=== PATIENT | female | born 1995 | race African-American/Black ===

== ENCOUNTER 2022-08-23 07:48 | Inpatient (IN) | payer OTHER ==
[2022-08-23] MEDS ORDERED: CITRIC ACID/SODIUM CITRATE 30 ML UNIT-DOSE CUP PO ONE (09:05)
[2022-08-23] MEDS ORDERED: ELECTROLYTE-148 SOLN 500 ML IV ONE (09:05)
[2022-08-23] MEDS ORDERED: ceFAZolin SODIUM 1 GM VIAL ONE (09:07)
[2022-08-23] MEDS ORDERED: ELECTROLYTE-148 SOLN 1,000 ML IV SCH (09:45)
[2022-08-23] MEDS ORDERED: CEFAZOLIN 3 GM in DEXTROSE 5%-WATER 100 ML IVPB ONE (09:45)
[2022-08-23 10:00] VITALS: BMI 35.3
[2022-08-23 10:09] LABS: BASO % 0.4 % (0-2.0); EOS % 0.7 % (0-4.5); HEMATOCRIT 33.9 % (32.4-45.2); HEMOGLOBIN 10.6 GM/dL (10.7-15.3); LYMPH % 8.9 % (8-40); MCH 26.9 pg (25.7-33.7); MCHC 31.4 g/dl (32.0-36.0); MEAN CELL VOLUME 85.7 fl (80-96); MEAN PLT VOLUME 9.4 fl (7.5-11.1); MONO % 5.7 % (3.8-10.2); NEUT % 84.3 % (42.8-82.8); PLATELET COUNT 274 10^3/uL (134-434); RBC 3.95 M/mm3 (3.60-5.2); RDW 14.7 % (11.6-15.6); WHITE BLOOD COUNT 17.6 K/mm3 (4.0-10.0)
[2022-08-23 10:17] LABS: INR 0.97 (0.83-1.09); PROTHROMBIN TIME (PATIENT) 11.2 SEC (9.7-13.0)
[2022-08-23] MEDS ORDERED: AZITHROMYCIN IVPB 500 MG/250 ML BAG IVPB ONE (10:17)
[2022-08-23 10:19] LABS: ACTIVATED PTT 27.2 SECONDS (25.2-36.5)
[2022-08-23 10:42] LABS: POC NITRAZINE NEG
[2022-08-23 11:09] LABS: POTASSIUM 4.2 mmol/L (3.5-5.1)
[2022-08-23 11:12] LABS: BLOOD UREA NITROGEN 8.1 mg/dL (7-18); CALCIUM 9.4 mg/dL (8.5-10.1)
[2022-08-23 11:14] LABS: CREATININE 1.1 mg/dL (0.55-1.3)
[2022-08-23] MEDS ORDERED: SENNOSIDES/DOCUSATE COMBO (SENNA PLUS) TABLET (UD) PO PRN (12:08)
[2022-08-23] MEDS ORDERED: ONDANSETRON 4 MG/2 ML VIAL IVPB PRN (12:08)
[2022-08-23] MEDS ORDERED: oxyCODONE HCL 5 MG TABLET PO PRN (12:08)
[2022-08-23] MEDS ORDERED: OXYTOCIN 20 UNITS in 0.9% NS 20 UNIT/1,000 ML INFUS.BAG IV SCH (12:15)
[2022-08-23 12:29] LABS: CORD BASE EXCESS -5.8 mmol/L (0-2); CORD HCO3 22.4 mmHg (20-29); CORD PCO2 54.7 mmHg (30-78); CORD pH 7.231 (7.14-7.44)
[2022-08-23 12:33] LABS: CORD BASE EXCESS -7.3 mmol/L (0-2); CORD HCO3 23.1 mmHg (20-29); CORD PCO2 68.4 mmHg (30-78); CORD pH 7.146 (7.14-7.44)
[2022-08-23] MEDS ORDERED: OXYTOCIN 20 UNITS in 0.9% NS 20 UNIT/1,000 ML INFUS.BAG IV ONE (13:44)
[2022-08-23] MEDS: ACETAMINOPHEN 1000 MG/100 ML BAG IVPB SCH ×2 (15:21→21:30)
[2022-08-23] MEDS: IBUPROFEN 800 MG/8 ML IJ IVPB SCH (20:09)
[2022-08-23] MEDS: SIMETHICONE 80 MG TAB.CHEW (FP) PO PRN (20:12)
[2022-08-23 21:17] VITALS: RESP 18
[2022-08-23] MEDS: FAMOTIDINE 20 MG/50 ML IVPB 20 MG/50 ML MG IVPB SCH (22:00)
[2022-08-24] MEDS: ACETAMINOPHEN 1000 MG/100 ML BAG IVPB SCH ×3 (04:10→19:20)
[2022-08-24] MEDS: SIMETHICONE 80 MG TAB.CHEW (FP) PO PRN ×3 (04:25→20:20)
[2022-08-24] MEDS: IBUPROFEN 800 MG/8 ML IJ IVPB SCH ×4 (04:30→20:21)
[2022-08-24 08:36] LABS: HEMATOCRIT 27.2 % (32.4-45.2); HEMOGLOBIN 8.7 GM/dL (10.7-15.3); MCH 27.1 pg (25.7-33.7); MCHC 32.1 g/dl (32.0-36.0); MEAN CELL VOLUME 84.3 fl (80-96); MEAN PLT VOLUME 9.2 fl (7.5-11.1); PLATELET COUNT 211 10^3/uL (134-434); RBC 3.22 M/mm3 (3.60-5.2); RDW 14.9 % (11.6-15.6)
[2022-08-24] MEDS: FAMOTIDINE 20 MG/50 ML IVPB 20 MG/50 ML MG IVPB SCH ×2 (09:34→22:30)
[2022-08-24 09:56] LABS: ANISOCYTOSIS 0; MACROCYTOSIS 0
[2022-08-24] MEDS ORDERED: FERROUS SO4 325 MG TABLET (FP) PO SCH (10:00)
[2022-08-24] MEDS ORDERED: BISACODYL 10 MG SUPP.RECT RC PRN (12:08)
[2022-08-24] MEDS ORDERED: ACETAMINOPHEN 500 MG TABLET (FP) PO SCH (12:30)
[2022-08-24] MEDS: DOCUSATE SODIUM 100 MG CAPSULE (FP) PO SCH ×2 (14:25→22:29)
[2022-08-24] MEDS: ACETAMINOPHEN 325 MG TABLET (FP) PO SCH (20:20)
[2022-08-24] MEDS: FERROUS SO4 325 MG TABLET (FP) PO SCH (22:29)
[2022-08-24] MEDS: oxyCODONE HCL 5 MG TABLET PO PRN (22:40)
[2022-08-25] MEDS: ACETAMINOPHEN 325 MG TABLET (FP) PO SCH ×4 (02:26→21:27)
[2022-08-25] MEDS: IBUPROFEN 800 MG/8 ML IJ IVPB SCH ×2 (02:31→08:02)
[2022-08-25] MEDS: DOCUSATE SODIUM 100 MG CAPSULE (FP) PO SCH ×3 (05:51→21:27)
[2022-08-25] MEDS: SIMETHICONE 80 MG TAB.CHEW (FP) PO PRN ×2 (05:51→09:24)
[2022-08-25] MEDS: FAMOTIDINE 20 MG/50 ML IVPB 20 MG/50 ML MG IVPB SCH (09:23)
[2022-08-25] MEDS: FERROUS SO4 325 MG TABLET (FP) PO SCH ×2 (09:24→21:27)
[2022-08-25] MEDS: oxyCODONE HCL 5 MG TABLET PO PRN (17:42)
[2022-08-25 22:59] VITALS: TEMP 98.7
[2022-08-26] MEDS: ACETAMINOPHEN 325 MG TABLET (FP) PO SCH ×2 (01:52→08:21)
[2022-08-26] MEDS: DOCUSATE SODIUM 100 MG CAPSULE (FP) PO SCH (06:15)
[2022-08-26] MEDS: oxyCODONE HCL 5 MG TABLET PO PRN (06:15)
[2022-08-26] MEDS: SIMETHICONE 80 MG TAB.CHEW (FP) PO PRN (06:15)
[2022-08-26 08:37] VITALS: PULSE 79
[2022-08-26 13:06] VITALS: BP 134/85
== END 2022-08-26 13:50 | disposition home or self-care (01) | DRG 540 ==
LOC: JDEL 07:48 → JLDR 08:56 → J3W 14:10
PROVIDERS: ADMIT Obstetrics & Gynecology; ATTEND Obstetrics & Gynecology
PROC: 10D00Z1 Extraction of Products of Conception, Low, Open Approach (ICD-10-PCS; principal; 2022-08-23)
DX: O32.1XX0 Maternal care for breech presentation, not applicable or unspecified (principal); O69.1XX0 Labor and delivery complicated by cord around neck, with compression, not applicable or unspecified; O99.214 Obesity complicating childbirth; O99.824 Streptococcus B carrier state complicating childbirth; O41.03X0 Oligohydramnios, third trimester, not applicable or unspecified; O60.23X0 Term delivery with preterm labor, third trimester, not applicable or unspecified; Z3A.38 38 weeks gestation of pregnancy; Z37.0 Single live birth
CPT/HCPCS: 36415; 36600; 80048; 82803; 83986-QW; 85025; 85610; 85730; 86780; 86850; 86900; 86901; 88307-TC; 93970-TC; 94010